=== PATIENT | female | born 1965 | race Caucasian/White ===

== ENCOUNTER 2018-06-14 08:21 | Day surgery (SDC) | payer OTHER ==
[~2018-06-14] VITALS: Ht 162.6 cm; Wt 52.5 kg
[2018-06-14 08:57] VITALS: Ht 162.6 cm; Wt 52.5 kg
[2018-06-14 09:18] VITALS: BP 124/56; PULSE 70; RESP 24
[2018-06-14] MEDS ORDERED: ADVIL (09:18)
[2018-06-14] MEDS ORDERED: VIT D3 (09:18)
[2018-06-14] MEDS ORDERED: VENTOLIN HFA (09:18)
--- NOTE | 2018-06-14 09:20 | PREAC ---
Date/Time of Note Date/Time of Note DATE: 06/14/18 TIME: 09:07 Anesthesia Eval and Record Evaluation Time Pre-Procedure Interview DATE: 06/14/18 TIME: 09:07 Age 53 Sex female NPO: 8 hrs Preoperative diagnosis Reflux, screening Planned procedure EGD colonoscopy Past Medical History Past Medical History: Includes Pulm: Asthma Psych: Anxiety Infection(s): Hep C Surgery & Anesthesia Issues No known issue Meds Anticoagulation: No Beta Yuni within 24 hr: No Reason Beta Yuni not given: Pt. not on B-Yuni Meds reviewed: Yes Allergies Allergies Reviewed: Yes Labs/Studies Labs Reviewed: Reviewed by anesthesiologist test: Negative Studies: ECG (n/a) Pre-procedure Exam Airway: Adequate mouth opening Mallampati: Mallampati I Teeth: Normal Lung: Normal Heart: Normal ASA Physical Status ASA physical status: 2 Emergency: None Planned Anesthetic General/MAC: MAC Planned Pain Management Parenteral pain med Pre-operative Attestations Prior to commencing anesthesia and surgery, the patient was re-evaluated, there was verification of: *The patient's identity *The results of appropriate recent lab work and preoperative vital signs *The above evaluation not changing prior to induction *Anesthetic plan, risk benefits, alternative and complications discussed with patient/family; questions answered; patient/family understands, accepts and wishes to proceed. LIZA WESTON MD Jun 14, 2018 09:18
[2018-06-14] MEDS ORDERED: PROPOFOL 20 ML ONE ×2 (09:23→10:25)
[2018-06-14] MEDS ORDERED: MIDAZOLAM 1 MG/ML 2 ML INJ ONE (09:24)
[2018-06-14] MEDS ORDERED: FENTAnyl 50 MCG/ML VIAL ONE (09:24)
[2018-06-14] MEDS ORDERED: METOCLOPRAMIDE 10 MG INJ ONE (09:24)
[2018-06-14 10:23] VITALS: BP 121/60; PULSE 64; RESP 28
--- NOTE | 2018-06-14 10:23 | PAC ---
Date/Time of Note Date/Time of Note DATE: 06/14/18 TIME: 10:23 Post-Anesthesia Notes Post-Anesthesia Note Last documented vital signs Vital Signs Date Temp Pulse Resp B/P (MAP) Pulse Ox O2 O2 Flow FiO2 Time Delivery Rate 06/14/18 97.8 70 24 124/56 99 Room Air 09:18 (78) Activity: WNL Respiratory function: WNL Cardiovascular function: WNL Mental status: Baseline Pain reasonably controlled: Yes Hydration appropriate: Yes Nausea/Vomiting absent: No LIZA WESTON MD Jun 14, 2018 10:23
== END 2018-06-14 14:29 | disposition home or self-care (01) ==
LOC: GIL 08:21
PROVIDERS: ATTEND Internal Medicine Gastroenterology
DX: Z12.11 Encounter for screening for malignant neoplasm of colon (principal); K64.8 Other hemorrhoids; K21.0 Gastro-esophageal reflux disease with esophagitis; J45.909 Unspecified asthma, uncomplicated
CPT/HCPCS: 43239; 45378; 84703; J2250; J2765; J3010; Z7610; 88305; 88313